=== PATIENT | female | born 1980 | race Caucasian/White ===

== ENCOUNTER 2022-02-20 01:10 | Emergency (ER) | payer OTHER, MEDICAID, SELFPAY ==
[2022-02-20] VITALS (9 sets, daily range): BP systolic 146–150; BP diastolic 87–89; PULSE 75–156; RESP 26; TEMP 36.8; O2SAT 78–99; BMI 38.9
--- NOTE | 2022-02-20 01:32 | DI.RAD.S_ITS ---
PROCEDURE: XR CHEST 2V INDICATIONS: shortness of breath TECHNIQUE: 2 views of the chest were acquired. COMPARISON: None. FINDINGS: Surgical changes and devices: None. Lungs and pleura: Lungs are clear. No pleural effusions or pneumothorax. Mediastinum: Mediastinal contours are normal. Heart size is normal. Bones and chest wall: No suspicious bony abnormalities. Soft tissues appear unremarkable. IMPRESSION: The inspiratory volume is reduced, the body habitus is large. These factors produce a mild crowding of the bronchovascular markings but no definite pneumonia is found. Dictated by: Tom Gaines M.D. on 02/20/2022 at 2:00 Approved by: Tom Gaines M.D. on 02/20/2022 at 2:00
[2022-02-20 02:16] LABS: Add Manual Diff / Slide Review NO; Basophils Absolute Auto 100 /uL (0-100); Basophils Percent Auto 0.6 % (0-2); Eosinophils Absolute Auto 1400 /uL (0-450); Eosinophils Percent Auto 14.1 % (2-4); Hematocrit 41.6 % (36-46); Lymphocytes Absolute Auto 2100 /uL (1100-4500); Lymphocytes Percent Auto 20.9 % (25-40); Mean Corpuscular HGB Conc 33.6 % (30-36); Mean Corpuscular Hemoglobin 30.2 PG (26-34); Monocytes Absolute Auto 600 /uL (0-900); Monocytes Percent Auto 5.6 % (3-14); Neutrophils Absolute Auto 5900 /uL (1500-7000); Neutrophils Percent Auto 58.8 % (50-75); Platelet Count 336 X10^3/uL (150-400); Red Blood Cell Count 4.62 X10^6/uL (4.0-5.2); Red Cell Distribution Width 13.6 % (11.6-14.8)
[2022-02-20 02:26] LABS: Alanine Aminotransferase 21 IU/L (<35); Albumin 4.2 g/dL (3.5-5.0); Albumin Globulin Ratio 1.2 (1.0-2.8); Alkaline Phosphatase 123 U/L (38-126); Aspartate Aminotransferase 22 IU/L (14-36); Bilirubin Total 0.3 mg/dL (0.2-1.3); Blood Urea Nitrogen 10 mg/dL (7-17); Calcium 8.9 mg/dL (8.4-10.2); Carbon Dioxide 23 mmol/L (22-32); Chloride 103 mmol/L (98-107); Estimated Glomerular Filt Rate > 60 mL/min (>60); Globulin 3.4 g/dL (1.7-4.1); Glucose 124 mg/dL (70-100); HEMOLYSIS < 15 (0-50); Lactate (Lactic Acid) 1.8 mmol/L (0.7-2.1); Potassium 3.3 mmol/L (3.4-5.1); Sodium 138 mmol/L (137-145); Total Protein 7.6 g/dL (6.3-8.2)
--- NOTE | 2022-02-20 02:30 | PC.NURSE ---
Resting quietly in NAD with eyes closed - no needs voiced - PWD - awaiting further intervention
[2022-02-20 02:41] LABS: Influenza A - CEPHEID Flu A NEGATIVE (NEGATIVE); Influenza B - CEPHEID Flu B NEGATIVE (NEGATIVE); Respiratory Syncytial Virus Negative (Negative)
[2022-02-20 02:43] LABS: COVID-19 CEPHEID 4-PLEX PCR Negative (Negative)
--- NOTE | 2022-02-20 02:48 | ED.SOB ---
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 Patient denies any other medical issues. Patient has had nasal congestion, cough that has been nonproductive no chest pain some mild shortness of breath. Patient denies any new swelling in her extremities but did note that she would had a DVT. Patient denies fevers or chills. No nausea or vomiting, no GI or urinary symptoms. Discussed getting DVT ultrasound and troponin/BNP but she defers. Patient does use tobacco daily. Some alcohol, occasional marijuana. She has a spacer at home but no albuterol. Related Data Previous Rx's Medication Instructions Recorded albuterol sulfate 90 mcg/actuation 2 puff inhalation QID PRN 02/20/22 aerosol inhaler shortness of breath or wheezing #8.5 grams prednisone 20 mg tablet 40 mg PO DAILY #10 tabs 02/20/22 Allergies Allergy/AdvReac Type Severity Reaction Status Date / Time No Known Drug Allergies Allergy Verified 02/20/22 01:27 Review of Systems Review of Systems ROS Unobtainable: All systems reviewed & are unremarkable except as noted in HPI and below Patient History Social History Smoking Status: Current every day smoker Smoking Status: Current every day smoker tobacco type: cigarettes alcohol intake frequency: a few times a week Substance Use Type: marijuana Exam Narrative Exam Narrative: GENERAL: Alert and oriented x three, HEENT: Head normocephalic, atraumatic, EOMI, pupils reactive, face symmetric, moist mucous membranes NECK: Supple, full range of motion CARDIOVASCULAR: Regular rate and rhythm without murmurs, rubs or gallops. RESPIRATORY: Breath sounds equal bilaterally, no wheezes rales or rhonchi. No Tachypnea or accessory muscle use. ABDOMEN: Soft, nontender. Normoactive bowel sounds all 4 quadrants. No guarding or rebound, rigidity, no mass : No CVA tenderness EXTREMITIES: Normal range of motion, no clubbing or edema. Neurovascularly intact NEUROLOGICAL: Cranial nerves II through XII grossly intact. Moving all extremities SKIN: Warm, dry, no petechiae, no rashes or lesions. Initial Vital Signs Initial Vital Signs: Vital Signs Pulse Rate 94 H 02/20/22 01:25 Blood Pressure 146/87 H 02/20/22 01:25 Pulse Oximetry 99 02/20/22 01:25 Course Orders Ordered: Discontinued Medications Albuterol (Albuterol Hfa Prepack) 1 box MISC SEEINSTR ONE Stop: 02/20/22 03:49 Last Admin: 02/20/22 04:07 Dose: 1 box Documented By: EUNICE Prednisone (Prednisone 20 Mg Tablet) 60 mg PO NOW ONE Stop: 02/20/22 03:34 Vital Signs Vital signs: Vital Signs - 8 hr 02/20/22 01:27 Temperature 98.3 F Pulse Rate 93 H Respiratory Rate 26 H Blood Pressure 146/87 H Pulse Oximetry 99 Oxygen Delivery Method Room Air MDM - SOB/Dyspnea Lab Data Result diagrams: 02/20/22 01:55 02/20/22 01:55 Labs: Lab Results 02/20/22 02/20/22 02/20/22 Range/Units 01:45 01:55 01:55 WBC 10.0 (4.5-11.0) X10^3/uL RBC 4.62 (4.0-5.2) X10^6/uL Hgb 14.0 (12.0-16.0) g/dL Hct 41.6 (36-46) % MCV 90.0 (80-100) fL MCH 30.2 (26-34) PG MCHC 33.6 (30-36) % RDW 13.6 (11.6-14.8) % Plt Count 336 (150-400) X10^3/uL Neut % (Auto) 58.8 (50-75) % Lymph % (Auto) 20.9 L (25-40) % [place] % (Auto) 5.6 (3-14) % Eos % (Auto) 14.1 H (2-4) % Baso % (Auto) 0.6 (0-2) % Neut # (Auto) 5900 (9642-4107) /uL Lymph # (Auto) 2100 (7583-9844) /uL [place] # (Auto) 600 (0-900) /uL Eos # (Auto) 1400 H (0-450) /uL Baso # (Auto) 100 (0-100) /uL Sodium 138 (137-145) mmol/L Potassium 3.3 L (3.4-5.1) mmol/L Chloride 103 (98-107) mmol/L Carbon Dioxide 23 (22-32) mmol/L BUN 10 (7-17) mg/dL Creatinine 0.83 (0.52-1.04) mg/dL Estimated GFR > 60 (>60) mL/min BUN/Creatinine Ratio 12.0 (6-22) Glucose 124 H (70-100) mg/dL Lactate (0.7-2.1) mmol/L Calcium 8.9 (8.4-10.2) mg/dL Total Bilirubin 0.3 (0.2-1.3) mg/dL AST 22 (14-36) IU/L ALT 21 (<35) IU/L Alkaline Phosphatase 123 (38-126) U/L Total Protein 7.6 (6.3-8.2) g/dL Albumin 4.2 (3.5-5.0) g/dL Globulin 3.4 (1.7-4.1) g/dL Albumin/Globulin Ratio 1.2 (1.0-2.8) SARS-CoV-2 (PCR) Negative (Negative) Influenza A (RT-PCR) Flu a negative (NEGATIVE) Influenza B (RT-PCR) Flu b negative (NEGATIVE) RSV (PCR) Negative (Negative) 02/20/22 Range/Units 01:55 WBC (4.5-11.0) X10^3/uL RBC (4.0-5.2) X10^6/uL Hgb (12.0-16.0) g/dL Hct (36-46) % MCV (80-100) fL MCH (26-34) PG MCHC (30-36) % RDW (11.6-14.8) % Plt Count (150-400) X10^3/uL Neut % (Auto) (50-75) % Lymph % (Auto) (25-40) % [place] % (Auto) (3-14) % Eos % (Auto) (2-4) % Baso % (Auto) (0-2) % Neut # (Auto) (8972-1593) /uL Lymph # (Auto) (0877-1958) /uL [place] # (Auto) (0-900) /uL Eos # (Auto) (0-450) /uL Baso # (Auto) (0-100) /uL Sodium (137-145) mmol/L Potassium (3.4-5.1) mmol/L Chloride (98-107) mmol/L Carbon Dioxide (22-32) mmol/L BUN (7-17) mg/dL Creatinine (0.52-1.04) mg/dL Estimated GFR (>60) mL/min BUN/Creatinine Ratio (6-22) Glucose (70-100) mg/dL Lactate 1.8 (0.7-2.1) mmol/L Calcium (8.4-10.2) mg/dL Total Bilirubin (0.2-1.3) mg/dL AST (14-36) IU/L ALT (<35) IU/L Alkaline Phosphatase (38-126) U/L Total Protein (6.3-8.2) g/dL Albumin (3.5-5.0) g/dL Globulin (1.7-4.1) g/dL Albumin/Globulin Ratio (1.0-2.8) SARS-CoV-2 (PCR) (Negative) Influenza A (RT-PCR) (NEGATIVE) Influenza B (RT-PCR) (NEGATIVE) RSV (PCR) (Negative) Imaging Data Chest x-ray: Radiologist's Impression: Close Chest X-Ray (Signed) [facility] - 02/20/22 Launch?[address] [address] XRay Report Signed Patient: Mary Lou Negrete MR#: [id number] : 1980 Acct:[id number] Age/Sex: 41 / F Date of Service: 02/20/22 Loc: ED Accession Number: [id number] ?? Procedure: XR chest 2V Ordering Provider: Lvainia Hollingsworth D.O. PROCEDURE:? XR CHEST 2V ? INDICATIONS:? shortness of breath ? TECHNIQUE:? 2 views of the chest were acquired.? ? COMPARISON:? None. ? FINDINGS:? ? Surgical changes and devices:? None.? ? Lungs and pleura:? Lungs are clear.? No pleural effusions or pneumothorax.? ? Mediastinum:? Mediastinal contours are normal.? Heart size is normal.? ? Bones and chest wall:? No suspicious bony abnormalities.? Soft tissues appear unremarkable.? ? IMPRESSION:? The inspiratory volume is reduced, the body habitus is large.? These factors produce a mild crowding of the bronchovascular markings but no definite pneumonia is found. ? ? Dictated by: Tom Gaines M.D. on 02/20/2022 at 2:00 ? ? Approved by: Tom Gaines M.D. on 02/20/2022 at 2:00 ECG Data Attestation: I personally reviewed and interpreted this ECG as follows: Prior ECG tracings: not available for review Interpretation: Sinus rhythm rate of 92 PA 136 QRS 80 QTC 455. No acute ST changes appreciated. No priors for comparison. MDM Narrative Medical decision making narrative: This is a 41-year-old female with complaint of cough and shortness of breath. Patient presents with significant other they both have similar symptoms. Patient chest x-ray and labs overall show no acute cause. Discussed with patient about adding on troponin and DVT study as she has had prior blood clots and had not completed her anticoagulation. She politely refuses this. She does note that she is out of albuterol. She also requests referral to orthopedic surgery for carpal tunnel. Discharge Plan Departure Patient Disposition: Home Clinical Impression: Acute exacerbation of chronic obstructive airways disease Instructions: Be a Partner in Your COPD Care Activity Restrictions/Additional Instructions: Please follow-up with primary care you can call to set up follow-up. You can try Dr. Hardin's office. Referral is included below. Orthopedic referral is also included as requested. Take steroids once daily until gone. You may use albuterol 2-4 puffs every 6 hours as needed. Prescription sent to [facility] in [place] Please return for worsening chest pain, shortness of breath, passing out, persistent swelling of extremities or other new or concerning symptoms. Prescriptions: New prednisone 20 mg tablet 40 mg PO DAILY Qty: 10 0RF albuterol sulfate 90 mcg/actuation HFA aerosol inhaler 2 puff inhalation QID PRN (Reason: shortness of breath or wheezing) Qty: 8.5 0RF Referrals: Vin Hardin MD [Physician] - Lynda Booker MD [Physician] - Visit Report Forms: Patient Portal/API
[2022-02-20] MEDS: ALBUTEROL HFA PREPACK 1 BOX MISC (04:07)
== END 2022-02-20 04:17 | disposition home or self-care (01) ==
PROVIDERS: Emergency Provider Emergency Medicine
DX: J44.1 Chronic obstructive pulmonary disease with (acute) exacerbation (principal); R06.02 Shortness of breath; Z20.822 Contact with and (suspected) exposure to COVID-19
CPT/HCPCS: 0241U; 36415; 71046; 80053; 83605; 85025; 93005; 99283; 99284

== ENCOUNTER 2022-02-24 23:42 | Emergency (ER) | payer OTHER, MEDICAID, SELFPAY ==
[2022-02-25 00:03] VITALS: BP 169/106; PULSE 87; RESP 17; TEMP 36.6; O2SAT 99; BMI 37.2
[2022-02-25] MEDS: ALBUTEROL/IPRATROPIUM 3 ML AMPUL INH (00:06)
--- NOTE | 2022-02-25 01:33 | ED_ITS ---
HPI - SOB/Dyspnea General Chief Complaint: Shortness of Breath/Dyspnea Stated Complaint: SOB Time Seen by Provider: 02/25/22 01:11 Source: patient Mode of arrival: Ambulatory Limitations: no limitations History of Present Illness HPI Narrative: This is a 41-year-old female with history of tobacco abuse, states she is been told she is COPD and has had prior DVT which he was only anticoagulated for portion of the time she was supposed to be. Patient presents with her partner today they both have had nasal congestion cough and shortness of breath. Patient was seen by myself on 02/20/2022, patient is wheezy today initially but improved with neb. She states no fevers or chills. Some mild shortness of breath and she feels like it is worse in the morning. She denies chest pain or pressure. States she is had some clearish productive sputum. No nausea, no vomiting, no GI or urinary symptoms. Patient does use tobacco daily, occasional alcohol, occasional marijuana. Patient states that she would like a p rescription for albuterol nebulized. She politely refuses additional workup such as cardiac workup or ultrasound of her lower extremity for DVT/PE. Related Data Previous Rx's Medication Instructions Recorded albuterol sulfate 90 mcg/actuation 2 puff inhalation QID PRN 02/20/22 aerosol inhaler shortness of breath or wheezing #8.5 grams prednisone 20 mg tablet 40 mg PO DAILY #10 tabs 02/20/22 albuterol sulfate 2.5 mg/3 mL 2.5 mg (3 mL) inhalation Q4-6H PRN 02/25/22 (0.083 %) solution for nebulization shortness of breath or wheezing #75 mL azithromycin 250 mg tablet See Rx Instructions PO .COMPLEX #6 02/25/22 tabs Allergies Allergy/AdvReac Type Severity Reaction Status Date / Time No Known Drug Allergies Allergy Verified 02/20/22 01:27 Review of Systems Review of Systems ROS Unobtainable: All systems reviewed & are unremarkable except as noted in HPI and below Patient History Social History Smoking Status: Current every day smoker Smoking Status: Current every day smoker tobacco type: cigarettes alcohol intake frequency: a few times a week Substance Use Type: marijuana Exam Narrative Exam Narrative: GENERAL: Alert and oriented x three, female in mild distress HEENT: Head normocephalic, atraumatic, EOMI, pupils reactive, face symmetric, moist mucous membranes NECK: Supple, full range of motion CARDIOVASCULAR: Regular rate and rhythm without murmurs, rubs or gallops. RESPIRATORY: Breath sounds equal bilaterally, no wheezes rales or rhonchi. No tachypnea or accessory muscle use. Patient was seen after albuterol neb was performed. ABDOMEN: Soft, nontender. Normoactive bowel sounds all 4 quadrants. No guarding or rebound, rigidity, no mass : No CVA tenderness EXTREMITIES: Normal range of motion, no clubbing or edema. Neurovascularly intact NEUROLOGICAL: Cranial nerves II through XII grossly intact. Moving all extremities SKIN: Warm, dry, no petechiae, no rashes or lesions. Initial Vital Signs Initial Vital Signs: Vital Signs Temperature 97.8 F 02/25/22 00:03 Pulse Rate 87 02/25/22 00:03 Respiratory Rate 17 02/25/22 00:03 Blood Pressure 169/106 H 02/25/22 00:03 Pulse Oximetry 99 02/25/22 00:03 Oxygen Delivery Method 02/25/22 00:03 Course Orders Ordered: Discontinued Medications Albuterol/Ipratropium (Albuterol/Ipratropium 3 Ml Ampul) 3 ml INH NOW ONE Stop: 02/25/22 00:06 Last Admin: 02/25/22 00:06 Dose: 3 ml Documented By: GISELLE Vital Signs Vital signs: Vital Signs - 8 hr 02/25/22 00:03 02/25/22 02:09 Temperature 97.8 F 96.2 F L Pulse Rate 87 87 Respiratory Rate 17 24 Blood Pressure 169/106 H 142/92 H Pulse Oximetry 99 100 Oxygen Delivery Method Room Air Room Air MDM - SOB/Dyspnea MDM Narrative Medical decision making narrative: This is a 41-year-old female with chronic tobacco abuse, reported COPD and prior DVT. Discussed with patient about working up for cardiac,PE/DVT she defers additional workup. She is here with her partner and they would both like albuterol neb prescriptions. He has had some productive green sputum and they both likely have portion of COPD so may benefit from azithromycin. Discharge Plan Departure Patient Disposition: Home Clinical Impression: Acute exacerbation of chronic obstructive airways disease Activity Restrictions/Additional Instructions: Follow-up for recheck, I would recommend following up additional workup to rule out blood clots. Prescription for albuterol vials have been sent you may use 1-2 vials every 4 hours as needed. Take azithromycin, 2 tablets the 1st day, then 1 tablet daily x4 days Prescription sent to [facility] in [place]. Please return for new or worsening chest pain, shortness of, fevers, persistent vomiting, passing out, new swelling in her extremities or other new or concerning changes. Prescriptions: New albuterol sulfate 2.5 mg /3 mL (0.083 %) solution for nebulization 2.5 mg inhalation Q4-6H PRN (Reason: shortness of breath or wheezing) Qty: 75 0RF azithromycin 250 mg tablet See Rx Instructions .ROUTE .COMPLEX Qty: 6 0RF Rx Instructions: For 250 mg dose pack: take 500 mg today (day 1), then 250 mg for 4 days (days 2-5) No Action prednisone 20 mg tablet 40 mg PO DAILY Qty: 10 0RF albuterol sulfate 90 mcg/actuation HFA aerosol inhaler 2 puff inhalation QID PRN (Reason: shortness of breath or wheezing) Qty: 8.5 0RF Visit Report Forms: Patient Portal/API
[2022-02-25 02:09] VITALS: BP 142/92; PULSE 87; RESP 24; TEMP 35.7; O2SAT 100
== END 2022-02-25 02:10 | disposition home or self-care (01) ==
PROVIDERS: Emergency Provider Emergency Medicine
DX: J44.1 Chronic obstructive pulmonary disease with (acute) exacerbation (principal)
CPT/HCPCS: 99283

== ENCOUNTER → 2023-07-11 11:22 | Outpatient (CLI) | payer OTHER, MEDICAID, SELFPAY | LOC: RESP 11:23 | PROVIDERS: Family Provider Family Medicine; PCP Family Medicine; Referring Provider Family Medicine; Visit Provider Family Medicine | DX: J44.9 Chronic obstructive pulmonary disease, unspecified (principal); Z87.891 Personal history of nicotine dependence | CPT/HCPCS: 94060; 94729 ==